=== PATIENT | female | born 1990 | race African-American/Black ===

== ENCOUNTER 2020-03-29 20:20 | Observation (INO) | payer MEDICAID ==
[~2020-03-29] VITALS: Ht 162.6 cm; Wt 98.4 kg
[2020-03-29] MEDS ORDERED: FERR-71 MT (20:53)
[2020-03-29] MEDS ORDERED: PNV1TABL76 PO (20:53)
== END 2020-03-29 21:25 | disposition home or self-care (01) ==
LOC: 8 EST LDRP 20:20
PROVIDERS: ADMIT Obstetrics & Gynecology; ATTEND Obstetrics & Gynecology
DX: O42.913 Preterm premature rupture of membranes, unspecified as to length of time between rupture and onset of labor, third trimester (principal); Z3A.36 36 weeks gestation of pregnancy
CPT/HCPCS: 59025; G0378; 99281

== ENCOUNTER → 2020-04-15 | Outpatient (CLI) | payer MEDICAID ==
[~2020-04-15] MED LIST: FERR-71 MT; PNV1TABL76 PO
== END | disposition home or self-care (01) ==
LOC: LAB 09:48
PROVIDERS: ATTEND Obstetrics & Gynecology
DX: Z01.812 Encounter for preprocedural laboratory examination (principal); Z20.828 Contact with and (suspected) exposure to other viral communicable diseases
CPT/HCPCS: 87635; C9803

== ENCOUNTER 2020-04-17 06:11 | Inpatient (IN) | payer MEDICAID ==
[~2020-04-17] VITALS: Ht 162.6 cm; Wt 99.3 kg
[2020-04-17] MEDS ORDERED: METHYLERGONOVINE MALEATE 0.2 MG/ML IM PRN (07:15)
[2020-04-17] MEDS ORDERED: MISOPROSTOL 100MCG TABLET PO PRN (07:15)
[2020-04-17] MEDS ORDERED: DEXT 5%/LR + PITOCIN 20UNITS/L 1,000 ML IV PRN (07:15)
[2020-04-17] MEDS ORDERED: CARBOPROST TROMETHAMINE 250 MCG/ML AMPUL IM PRN (07:15)
[2020-04-17 07:40] LABS: BASOPHILS % 0.4 % (0.0-2.0); EOSINOPHILS % 1.6 % (0.0-5.0); HEMATOCRIT. 34.2 % (36.0-48.0); HEMOGLOBIN. 10.8 g/dL (12.0-16.0); LYMPHOCYTES % 24.7 % (20.0-50.0); MEAN CORPUSCULAR HEMOGLOBIN 24.8 pg (28.0-32.0); MEAN CORPUSCULAR VOLUME 78.7 fL (81.0-99.0); MEAN PLATELET VOLUME 9.6 fl (7.4-10.4); NEUTROPHILS % 66.3 % (40.0-76.0); PLATELET 168 x1000/uL (130-400); RED BLOOD CELL COUNT 4.34 mill/uL (4.2-5.4); RED CELL DISTRIBUTION WIDTH 15.1 % (11.6-14.6)
[2020-04-17] MEDS: LACTATED RINGERS 1,000 ML IV SCH ×3 (07:44→22:30)
[2020-04-17 07:52] LABS: CLARITY URINE CLEAR (CLEAR); COLOR URINE YELLOW (YELLOW); KETONES URINE NEGATIVE (NEGATIVE); LEUKOCYTE ESTERASE URINE NEGATIVE (NEGATIVE); NITRITE URINE NEGATIVE (NEGATIVE); OCCULT BLOOD URINE NEGATIVE (NEGATIVE); PROTEIN URINE NEGATIVE (NEGATIVE); SPECIFIC GRAVITY URINE 1.013 (1.005-1.030)
[2020-04-17 08:18] LABS: INR 0.9; PROTHROMBIN TIME 9.9 sec (9.6-11.0)
[2020-04-17 08:22] LABS: *AMPHETAMINES SCREEN URINE NEGATIVE (NEGATIVE); *BARBITURATES SCREEN URINE NEGATIVE (NEGATIVE); *BENZODIAZEPINES SCREEN URINE NEGATIVE (NEGATIVE); *COCAINE SCREEN URINE NEGATIVE (NEGATIVE)
[2020-04-17 08:23] LABS: CANNABINOID URINE SCREEN NEGATIVE (NEGATIVE); METHADONE URINE SCREEN NEGATIVE (NEGATIVE); OPIATES URINE SCREEN NEGATIVE (NEGATIVE); PHENCYCLIDINE URINE SCREEN NEGATIVE (NEGATIVE)
[2020-04-17 08:27] LABS: HEPATITIS B SURFACE ANTIGEN NEGATIVE
[2020-04-17] MEDS ORDERED: MORPHINE SULFATE/PF 1MG/ML 10ML AMP ONE (08:30)
[2020-04-17] MEDS ORDERED: PHENYLEPHRINE HCL 10 MG/ML 1ML (IV VIAL) IV ONE (08:33)
[2020-04-17] MEDS ORDERED: CITRIC ACID/SODIUM CITRATE SOLN 30ML UDC PO SCH (08:34)
[2020-04-17] MEDS ORDERED: EPHEDRINE SULFATE 50MG/ML VIAL ONE (08:36)
[2020-04-17] MEDS ORDERED: GLYCOPYRROLATE 0.2 MG/ML 2ML VIAL ONE (08:36)
[2020-04-17] MEDS ORDERED: CEFAZOLIN SODIUM 1000MG/VIAL ONE (08:39)
[2020-04-17] MEDS ORDERED: ONDANSETRON HCL 4MG/2ML INJ ONE (09:17)
[2020-04-17] MEDS ORDERED: METOCLOPRAMIDE HCL 10MG/2ML VIAL ONE (09:17)
[2020-04-17] MEDS ORDERED: OXYTOCIN 10 UNITS/ML 1ML ONE (09:21)
[2020-04-17] MEDS ORDERED: DEXT 5%/LR + PITOCIN 20UNITS/L 1,000 ML IV SCH (09:52)
[2020-04-17] MEDS ORDERED: RHO(D) IMMUNE GLOBULIN 300 MCG/SYR IM PRN (10:00)
[2020-04-17] MEDS ORDERED: BISACODYL 10MG SUPP PR PRN (10:00)
[2020-04-17] MEDS ORDERED: ONDANSETRON HCL 4MG/2ML INJ IV PRN (10:00)
[2020-04-17] MEDS ORDERED: DIPHENHYDRAMINE 25MG CAPSULE PO PRN (10:00)
[2020-04-17] MEDS ORDERED: HYDROCODONE/ACETAMINOPHEN 5/325MG TABLET PO PRN (10:00)
[2020-04-17] MEDS ORDERED: LANOLIN OINT 7GM TUBE TOP PRN (10:00)
[2020-04-17] MEDS ORDERED: IBUPROFEN 400MG TABLET PO PRN (10:00)
[2020-04-17] MEDS ORDERED: KETOROLAC 60MG/2ML VIAL IM ONE (10:01)
[2020-04-17 12:45] VITALS: BP 114/77
[2020-04-17] MEDS ORDERED: BUTORPHANOL TARTRATE 2 MG/ML VIAL IV PRN (13:15)
[2020-04-17] MEDS: DIPHENHYDRAMINE 50MG/ML VIAL IV PRN ×2 (13:24→20:18)
[2020-04-17 17:17] VITALS: BP 118/66
[2020-04-17 19:30] VITALS: BP 120/81
[2020-04-18] VITALS: BP 118/70
[2020-04-18 04:00] VITALS: BP 126/78
[2020-04-18 06:41] LABS: BASOPHILS % 0.4 % (0.0-2.0); EOSINOPHILS % 1.5 % (0.0-5.0); HEMATOCRIT. 31.1 % (36.0-48.0); LYMPHOCYTES % 17.6 % (20.0-50.0); MEAN CORPUSCULAR HEMOGLOBIN 24.9 pg (28.0-32.0); MEAN CORPUSCULAR VOLUME 77.9 fL (81.0-99.0); MEAN PLATELET VOLUME 9.7 fl (7.4-10.4); MONOCYTES % 7.5 % (2.0-8.0); PLATELET 146 x1000/uL (130-400); RED CELL DISTRIBUTION WIDTH 14.6 % (11.6-14.6)
[2020-04-18] MEDS: ACETAMINOPHEN WITH CODEINE 300/30MG TABLET PO PRN ×3 (06:45→19:15)
[2020-04-18 08:00] VITALS: BP 117/54
[2020-04-18] MEDS: PRENATAL VIT/FE FUMARATE/FA TABLET PO SCH (09:53)
[2020-04-18 16:31] VITALS: BP 114/64
[2020-04-18 19:30] VITALS: BP 108/68
[2020-04-19 04:00] VITALS: BP 133/84
[2020-04-19] MEDS: ACETAMINOPHEN WITH CODEINE 300/30MG TABLET PO PRN (08:19)
[2020-04-19] MEDS: PRENATAL VIT/FE FUMARATE/FA TABLET PO SCH (08:19)
[2020-04-19 08:20] VITALS: BP 128/87
== END 2020-04-19 14:20 | disposition home or self-care (01) | DRG 540 ==
LOC: 8 EST LDRP 06:11 → 8EST 12:35
PROVIDERS: ADMIT Obstetrics & Gynecology; ATTEND Obstetrics & Gynecology
PROC: 10D00Z1 Extraction of Products of Conception, Low, Open Approach (ICD-10-PCS; principal; 2020-04-17)
DX: O34.219 Maternal care for unspecified type scar from previous cesarean delivery (principal); O99.12 Other diseases of the blood and blood-forming organs and certain disorders involving the immune mechanism complicating childbirth; O99.02 Anemia complicating childbirth; D72.829 Elevated white blood cell count, unspecified; D62 Acute posthemorrhagic anemia; Z37.0 Single live birth; Z3A.39 39 weeks gestation of pregnancy
CPT/HCPCS: 36415; 80305; 81003; 85025; 86592; 86703; 86762; 86850; 86900; 86920; 87340; 88307; J0690; J1200; J1885; J2274; J2370; J2405; J2590; J2765; J3490